=== PATIENT | female | born 1995 | race African-American/Black ===

== ENCOUNTER 2018-03-09 17:58 | Emergency (ER) | payer SELFPAY ==
[~2018-03-09] VITALS: Ht 182.9 cm; Wt 52.7 kg
[2018-03-09 18:32] VITALS: Ht 182.9 cm; Wt 52.7 kg
[2018-03-09 21:24] LABS: HCG URINE NEGATIVE (NEGATIVE)
[2018-03-09 21:28] LABS: APPEARANCE CLEAR (CLEAR); BILIRUBIN NEGATIVE (NEGATIVE); COLOR YELLOW (YELLOW); GLUCOSE NEGATIVE (NEGATIVE); KETONE NEGATIVE (NEGATIVE); NITRITE NEGATIVE (NEGATIVE); PROTEIN TRACE mg/dL (NEGATIVE); UROBILINOGEN NORMAL (NORMAL)
[2018-03-09 21:29] LABS: EPITHELIAL CELLS 0-5 /hpf (0-5); RED CELLS - URINE OCC /hpf (0-5); WHITE CELLS - URINE 0-5 /hpf (0-5)
[2018-03-09 21:30] LABS: BACTERIA FEW /hpf (NONE SEEN); YEAST <1+ /hpf (NONE SEEN)
[2018-03-09] MEDS ORDERED: MACROBID100 MG PO (21:39)
[2018-03-09] MEDS ORDERED: ROBAXIN500 MG PO (21:39)
[2018-03-09 22:04] VITALS: BP 122/78
== END 2018-03-09 22:05 | disposition home or self-care (01) ==
LOC: D.ER 17:58
PROVIDERS: Family Medicine
DX: N39.0 Urinary tract infection, site not specified (principal); R42 Dizziness and giddiness